=== PATIENT | male | born 1990 | race African-American/Black ===

== ENCOUNTER 2020-07-12 08:06 | Day surgery (SDC) | payer OTHER, SELFPAY ==
[2020-07-12] MEDS ORDERED: SIMETHICONE 40 MG/0.6 ML ML ONE (08:55)
[2020-07-12] MEDS ORDERED: MIDAZOLAM HCL 5 MG/5 ML VIAL ONE (08:56)
[2020-07-12] MEDS ORDERED: fentaNYL CITRATE/PF 100 MCG/2 ML AMP ONE (08:56)
[2020-07-12 13:51] VITALS: BP_SYST 159
== END 2020-07-12 12:25 | disposition home or self-care (01) ==
LOC: SDS 08:06 → SMU 08:07 → SDS 12:25
PROVIDERS: ATTEND Internal Medicine
DX: K62.5 Hemorrhage of anus and rectum (principal); K63.5 Polyp of colon; Z88.0 Allergy status to penicillin; Z88.8 Allergy status to other drugs, medicaments and biological substances; Z87.891 Personal history of nicotine dependence; Z20.828 Contact with and (suspected) exposure to other viral communicable diseases
CPT/HCPCS: 45380; 45385; 88305; 99152; G0378; J2250; J3010; U0003

== ENCOUNTER 2020-10-18 06:40 | Day surgery (SDC) | payer OTHER, SELFPAY ==
[~2020-10-18] VITALS: Ht 167.6 cm; Wt 49.0 kg
[2020-10-18] MEDS ORDERED: SIMETHICONE 40 MG/0.6 ML ML ONE (07:29)
[2020-10-18] MEDS ORDERED: fentaNYL CITRATE/PF 100 MCG/2 ML AMP ONE (07:29)
[2020-10-18] MEDS: MIDAZOLAM HCL 5 MG/5 ML VIAL ONE ×2 (08:14→08:17)
[2020-10-18 11:54] VITALS: BP_SYST 147
== END 2020-10-18 09:30 | disposition home or self-care (01) ==
LOC: SMU 06:40 → SDS 06:40
PROVIDERS: ATTEND Internal Medicine
DX: R12 Heartburn (principal); R14.2 Eructation; K44.9 Diaphragmatic hernia without obstruction or gangrene; K29.70 Gastritis, unspecified, without bleeding; Z20.828 Contact with and (suspected) exposure to other viral communicable diseases; Z88.0 Allergy status to penicillin; Z91.048 Other nonmedicinal substance allergy status
CPT/HCPCS: 87081; 36415; 43239; 88305; 88312; 88313; 99152; G0378; J2250; J3010; J7030; U0003